=== PATIENT | male | born 1960 | race Caucasian/White ===

== ENCOUNTER 2023-08-31 10:12 | Outpatient (AMB) | payer OTHER, SELFPAY ==
--- NOTE | 2023-08-31 11:16 | AM.OFFWIN_ITS ---
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 He notes he will clean the wound with both hydrogen peroxide rubbing alcohol at the time. He does have mild pain of the thumb there is no rubor or purulent drainage at this time. He is unsure of his last tetanus shot. He has normal range of motion of the thumb and sensation is intact. Nail is not involved. Denies other injuries. [facility] Social History Patient Tobacco Use Status: Never used Tobacco Review of Systems Const Reports as per HPI and Reports no additional complaints Musc Reports no additional complaints and Reports as per HPI Skin/Breast Denies lesions Neuro Reports no additional complaints and Reports as per HPI Physical Exam Vital Signs: Last Vital Signs Temp 97.7 F 08/31/23 11:22 Pulse 62 08/31/23 11:22 BP 130/76 08/31/23 11:22 Pulse Ox 98 08/31/23 11:22 Const General: cooperative, comfortable and no acute distress Orientation/consciousness: patient oriented x3 Neuro General: patient oriented x3 Extrem Right upper extremity: full ROM, normal capillary refill and Extremity exam: right hand (Distal right thumb with puncture wound as) Details: normal capillary refill, neuromotor exam normal, neurosensory exam normal, tendon exam normal and normal ROM of fingers; no edema Hand/finger images: 2 1. Entry point of drill bit was just lateral to nail bed, 3 mm area of open wound, no bleeding drainage or foreign body noted 2. Exit point of drill bit on lateral pad of thumb no bleeding or drainage or foreign body noted Results Reviewed Results Reviewed: X-ray of some contemporaneously read by me without finding of metallic foreign body or bony involvement. Assessment & Plan Assessment & Plan (1) Puncture wound of thumb: Code(s): S61.039A - Puncture wound without foreign body of unspecified thumb without damage to nail, initial encounter Qualifiers: Encounter type: initial encounter Laterality: right Qualified Code(s): S61.031A - Puncture wound without foreign body of right thumb without damage to nail, initial encounter Plan: Tdap given today to update patient. Ten-day course of Augmentin prescribed for puncture wound. Wound was copiously flushed with saline and Betadine solution. Bacitracin applied and wound dressed with dry gauze and Coban. Reviewed wound care with patient. Return to clinic immediately if he develops purulent drainage increased pain or swelling. ER if symptoms involve more than the distal thumb or he develops fever or chills return to clinic with any concerns. Orders: Orders 2 TDaP Immunization Today T14.8XXA - Other injury of unspecified body region, initial encounter, Z23 - Encounter for immunization Medications: New 2 amoxicillin-pot clavulanate 875-125 mg 1 tab PO Q12H 10 days 20 tabs 0RF Coding Level of Care Code New Pt Level 4 (54318) Diagnoses Puncture wound of right thumb, initial encounter S61.031A Encounter type: initial encounter Laterality: right
[2023-08-31 11:22] VITALS: BP 130/76; PULSE 62; TEMP 36.5; O2SAT 98
== END 2023-08-31 12:58 | disposition home or self-care (01) ==
PROVIDERS: PCP Internal Medicine; Visit Provider Physician Assistant
DX: S61.031A Puncture wound without foreign body of right thumb without damage to nail, initial encounter (principal); Z23 Encounter for immunization; T14.8XXA Other injury of unspecified body region, initial encounter; Z04.2 Encounter for examination and observation following work accident
CPT/HCPCS: 90471; 90715; 99204

== ENCOUNTER 2023-08-31 11:48 | Outpatient (REF) | payer OTHER, SELFPAY ==
--- NOTE | ~2023-08-31 | XR_ITS ---
EXAMINATION: XR FINGER, LEFT CLINICAL INFORMATION: Puncture wound thumb with a drill COMPARISON: None available. TECHNIQUE: Single view of the hand with 2 additional views of the left thumb. FINDINGS: Degenerative changes are present at the interphalangeal joints as well as marked degenerative change seen at the first CMC joint and the triscaphe joint. No acute fractures or dislocations. No radiopaque foreign bodies. XR/XR finger LT min 2V IMPRESSION: Degenerative changes as described above. No acute fracture or radiopaque foreign body.
== END 2023-08-31 11:49 | disposition home or self-care (01) ==
LOC: HO.HMGCX 11:48
PROVIDERS: PCP Internal Medicine; Visit Provider Physician Assistant
DX: S61.032A Puncture wound without foreign body of left thumb without damage to nail, initial encounter (principal)
CPT/HCPCS: 73140

== ENCOUNTER 2024-02-22 08:05 | Outpatient (AMB) | payer OTHER, SELFPAY ==
[2024-02-22 08:32] VITALS: BP 124/82; PULSE 97; TEMP 36.7; O2SAT 96
--- NOTE | 2024-02-22 08:32 | AM.OFFWIN_ITS ---
Intake Vital Signs 02/22/24 08:32 Height 5 ft 11 in Weight 215 lb BMI 30.0 BP 124/82 Blood Pressure Location Lt brachial Position Sitting Pulse 97 Pulse Source Pulse Oximeter Temp 98.1 F Temp Source Oral Pulse Oximetry (%) 96 Oxygen Delivery Method Room Air Intake Visit Reasons: EP RT foot Swelling/Pain Intake Note: Pt presents to the office today for c/o right foot swelling and pain that started about 4 days ago with no known injury. Pt states it is hard and painful to walk on. Patient Tobacco Use Status: Never used Tobacco Allergies No Known Allergies Allergy (Verified 02/22/24 08:35) HPI HPI Comments History of Present Illness Details Patient presents to the walkin today for sick visit complains of pain and swelling at base of right great toe Has been suffering with this pain for couple of years, reports became severe over the last 4 days Pain with palpation and with walking [facility] Social History Patient Tobacco Use Status: Never used Tobacco Review of Systems Const All systems reviewed & are unremarkable except as noted in HPI and below Physical Exam Vital Signs: Last Vital Signs Temp 98.1 F 02/22/24 08:32 Pulse 97 02/22/24 08:32 BP 124/82 02/22/24 08:32 Pulse Ox 96 02/22/24 08:32 Oxygen Delivery Method Room Air 02/22/24 08:32 BMI result Body Mass Index 30.0 General: awake, alert, oriented. Answers questions appropriately. Fully engaged in examination. Skin: warm, dry, intact HEENT: Normocephalic. Hearing intact. Cardiac: External chest normal in appearance. Respiratory: No cough, audible wheezing or stridor. Abdomen: without gross distension. MS: swelling and tenderness plantar aspect right 1st metatarsal. intact callous noted. Neurological: Oriented to person, place, time and situation. Thought process intact. No gait abnormalities appreciated. Psychiatric: Appropriate mood and affect. Good judgment and insight. Results Reviewed Results Reviewed: Right Foot XR: IMPRESSION: 1. Decreased bone mineral density which decreases sensitivity for fracture evaluation. 2. No acute visible fracture or dislocation. 3. Multi joint arthritic changes with enthesopathy at the base of the fifth metatarsal and Achilles tendon insertion site. Assessment & Plan Assessment & Plan (1) Right foot pain: Code(s): M79.671 - Pain in right foot Plan Walking boot applied, patient advised on use. Continue with the crutches as needed Tylenol and Motrin as needed for pain Rest, ice, elevate Referral placed for Orthopedics Follow up with PCP or return to the walk-in for any new or worsening symptoms. Coding Level of Care Code Est Pt Level 3 (02513) Diagnoses Right foot pain M79.671
== END 2024-02-22 09:39 | disposition home or self-care (01) ==
PROVIDERS: PCP Internal Medicine; Visit Provider Registered Nurse Emergency
DX: M79.671 Pain in right foot (principal)
CPT/HCPCS: 99213

== ENCOUNTER 2024-02-22 08:47 | Outpatient (REF) | payer OTHER, SELFPAY ==
--- NOTE | ~2024-02-22 | XR_ITS ---
EXAMINATION: XR FOOT, RIGHT CLINICAL INFORMATION: Pain COMPARISON: None available. TECHNIQUE: AP, lateral, and oblique views of the right foot. FINDINGS: Decreased bone mineral density which decreases sensitivity for fracture evaluation. No acute visible fracture or dislocation. Multi joint arthritic changes. Enthesopathy at the base of the fifth metatarsal and Achilles tendon insertion site. Spurring the dorsal midfoot. Joint spaces and alignment are otherwise maintained. XR/XR foot RT min 3V IMPRESSION: 1. Decreased bone mineral density which decreases sensitivity for fracture evaluation. 2. No acute visible fracture or dislocation. 3. Multi joint arthritic changes with enthesopathy at the base of the fifth metatarsal and Achilles tendon insertion site.
== END 2024-02-22 08:48 | disposition home or self-care (01) ==
LOC: HO.HMGCX 08:47
PROVIDERS: PCP Internal Medicine; Visit Provider Registered Nurse Emergency
DX: M76.61 Achilles tendinitis, right leg (principal); M19.071 Primary osteoarthritis, right ankle and foot
CPT/HCPCS: 73630

== ENCOUNTER 2024-03-30 08:21 | Outpatient (AMB) | payer OTHER, SELFPAY ==
--- NOTE | 2024-03-30 08:23 | A.OFFVIS_ITS ---
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 No history of previous treatment. Patient reports having ongoing foot pain for many years with no known injury and it has been getting worse over that past 2 months. He expresses that his pain is worse when ambulating and when being touched. His pain is focused on the medial aspect of the foot. Allergies No Known Allergies Allergy (Verified 03/30/24 08:24) Medication List - Last Reconciled 03/30/24 by Nidia Quiñones MD alendronate 70 mg PO QWEEK aspirin 81 mg PO DAILY bupropion HCl SR 150 mg PO DAILY digoxin 250 mcg PO DAILY meloxicam mg PO metoprolol tartrate 50 mg PO BID mirtazapine mg PO omeprazole 20 mg PO DAILY simvastatin 20 mg PO BEDTIME tamsulosin 0.4 mg PO DAILY HPI Comments Details: On and off for 2 years at least. Redness and swelling ball of right 1st toe and IP joint. 3-4 months has been bothering him almost daily, with pain and swelling, on big toe going to medial. He had gone to walk in clinic at least twice this year for this reason. Taken ibuprofen as needed. Can feel some type of numbness, when he goes to bed. feels weird . Also on left foot. No foot drop. ROS - thumb pain On disability, for depression and anxiety. 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 PCP Dr. Alexis in [facility]? [facility] Medical History (Updated 03/30/24 @ 09:20 by Nidia Quiñones MD) Joint pain Social History (Updated 03/30/24 @ 08:28 by Carlos Contreras) Alcohol intake: never Patient Tobacco Use Status: Never used Tobacco Current occupational status: disabled Review of Systems Const All systems reviewed & are unremarkable except as noted in HPI and below Physical Exam Vital Signs: BMI result Body Mass Index 30.0 Constitutional: Patient appears to be in no acute distress, well nourished and well developed. MSK: Bony enlargement that is red but not warm or tender to touch, on ball of big toe and IP joint, right. No tenderness over medial and lateral malleoli, Achillis tendon or plantar fascia. No ankle instability. Strength is 5/5 in all muscle groups tested. No increased tone noted. Neurological: Neurologic examination of the upper and lower extremities was nonfocal with intact sensation, muscle stretch reflexes and without focal motor deficits . Babinski was down going bilaterally. Clonus was negative. Gait is antalgic without loss of balance. Results Reviewed Results Reviewed: I independently reviewed the results of the following: Bony enlargement or arthritic changes on right 1st toe IP joint and MP joint. Ordering Physician: Kasey Lopez APRN, CNP Date of Service: 02/22/24 Procedure(s): XR foot RT min 3V Accession Number(s): [id number] cc: LYLE ALEXIS MD; Kasey Lopez APRN, CNP~ EXAMINATION: XR FOOT, RIGHT CLINICAL INFORMATION: Pain COMPARISON: None available. TECHNIQUE: AP, lateral, and oblique views of the right foot. FINDINGS: Decreased bone mineral density which decreases sensitivity for fracture evaluation. No acute visible fracture or dislocation. Multi joint arthritic changes. Enthesopathy at the base of the fifth metatarsal and Achilles tendon insertion site. Spurring the dorsal midfoot. Joint spaces and alignment are otherwise maintained. XR/XR foot RT min 3V IMPRESSION: 1. Decreased bone mineral density which decreases sensitivity for fracture evaluation. 2. No acute visible fracture or dislocation. 3. Multi joint arthritic changes with enthesopathy at the base of the fifth metatarsal and Achilles tendon insertion site. I reviewed records from the following: Walk-in clinic notes 02/22/2024 and 11/18/2023. Assessment & Plan Assessment & Plan (1) Joint pain: Code(s): M25.50 - Pain in unspecified joint Category: Medical Qualifiers: Joint pain location: foot Laterality: right Qualified Code(s): M25.571 - Pain in right ankle and joints of right foot (2) Gout: Code(s): M10.9 - Gout, unspecified Category: Medical Qualifiers: Gout site: foot Chronicity: acute Laterality: right Gout etiology: unspecified cause Qualified Code(s): M10.9 - Gout, unspecified Plan Chronic worsening right big toe pain and swelling, which I suspect could be gout. We will check blood work today, uric acid, VIVIAN, RF, and HbA1c. Checking for diabetes since he also complains of feet numbness. Will refer to Rheumatology for further evaluation treatment of gout. We will start naproxen 500 mg b.i.d.. Discussed side effects and precautions. Discontinue meloxicam since he is taking naproxen. Do this for at least 2 weeks and then p.r.n. as needed. Rheumatology may change the medication when they see him. Assessment and plan discussed with patient, and patient was agreeable. All questions were answered thoroughly. Nidia Quiñones MD, KALI Board Certified, [place] [employer] and [employer] (ABPMR) Board Certified, [place] [employer] (ABEM) Orders: Orders AMB Hemoglobin A1c Today M10.9 - Gout, unspecified, M25.50 - Pain in unspecified joint, Z13.9 - Encounter for screening, unspecified Uric Acid Today M10.9 - Gout, unspecified, M25.50 - Pain in unspecified joint Rheumatoid Factor Today M10.9 - Gout, unspecified, M25.50 - Pain in unspecified joint VIVIAN Reflex Titer and Pattern Today M10.9 - Gout, unspecified, M25.50 - Pain in unspecified joint Referrals Rheumatology Referral M10.9 - Gout, unspecified, M25.50 - Pain in unspecified joint Medications: New naproxen twice a day for 2 weeks at least, then continue as needed 500 mg PO BID 60 tabs 0RF Coding Level of Care Code New Pt Level 4 (80164) Diagnoses Arthralgia of right foot M25.571 Joint pain location: foot Laterality: right Acute gout of right foot, unspecified cause M10.9 Gout site: foot Chronicity: acute Laterality: right Gout etiology: unspecified cause
== END 2024-03-30 09:17 | disposition home or self-care (01) ==
PROVIDERS: PCP Internal Medicine; Visit Provider Physical Medicine & Rehabilitation
DX: M25.571 Pain in right ankle and joints of right foot (principal); M10.9 Gout, unspecified
CPT/HCPCS: 99204

== ENCOUNTER → 2024-03-30 08:21 | Outpatient (BNVA) | payer OTHER, SELFPAY | PROVIDERS: PCP Internal Medicine; Visit Provider Physical Medicine & Rehabilitation ==

== ENCOUNTER 2024-03-30 08:54 | Outpatient (REF) | payer OTHER, SELFPAY ==
[2024-03-30 10:46] LABS: Rheumatoid Factor < 13.0 IU/mL (<15.0)
[2024-03-30 10:59] LABS: Uric Acid 8.6 mg/dL (3.4-7.0)
[2024-04-02 22:24] LABS: Anti Nuclear Antibody Screen NEGATIVE (NEGATIVE)
== END 2024-03-30 08:55 | disposition home or self-care (01) ==
LOC: HO.10HDL 08:54
PROVIDERS: Visit Provider Physical Medicine & Rehabilitation
DX: M25.50 Pain in unspecified joint (principal); M10.9 Gout, unspecified
CPT/HCPCS: 36415; 84550; 86038; 86431

== ENCOUNTER 2024-07-05 14:53 | Outpatient (AMB) | payer OTHER, SELFPAY ==
--- NOTE | 2024-07-05 15:09 | MHC.OFFVIS ---
Vital Signs 07/05/24 15:12 Height 5 ft 11 in Weight 223 lb 15.834 oz BMI 31.2 BP 124/62 Blood Pressure Location Lt brachial Position Sitting Pulse 88 Pulse Source Pulse Oximeter Pulse Oximetry (%) 97 Oxygen Delivery Method Room Air Intake Visit Reasons: Gout Intake Note: Patient presents for Gout. Allergies No Known Allergies Allergy (Verified 07/05/24 15:13) Medication List - Last Reconciled 07/05/24 by Brunilda Wills MD alendronate 70 mg PO QWEEK aspirin 81 mg PO DAILY bupropion HCl SR 150 mg PO DAILY digoxin 250 mcg PO DAILY metoprolol tartrate 50 mg PO BID mirtazapine mg PO naproxen 500 mg PO BID omeprazole 20 mg PO DAILY simvastatin 20 mg PO BEDTIME tamsulosin 0.4 mg PO DAILY HPI Comments Details: This is a 64-year-old male who presents for evaluation of gout. Patient stated that he was having intermittent mild pain in his right big toe. However back in January he developed abrupt onset of severe right big toe pain associated with swelling and erythema. He went to urgent care. Gout was suspected. He was prescribed NSAIDs. He stated that the medications worked well. He has not had any recurrence of such severe pain but he would have intermittent achiness of his big toe. Over the last week he has noticed some aching of his knuckles bilaterally. Noticed any significant swelling. Patient is unaware of any personal or family history of gout. Denies history of kidney stones. He is unaware of any family history of an autoimmune rheumatic disease. Patient is on alendronate for osteoporosis. Patient broke his left hip in 2019. 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 Review of Systems [facility] Reports arthralgias, Denies joint swelling and Reports stiffness Physical Exam Vital Signs: Last Vital Signs Pulse 88 07/05/24 15:12 BP 124/62 07/05/24 15:12 Pulse Ox 97 07/05/24 15:12 Oxygen Delivery Method Room Air 07/05/24 15:12 BMI result Body Mass Index 31.2 Const General: cooperative, healthy appearing and comfortable Nutritional Appearance: obese Orientation/consciousness: patient oriented x3 Limitations: no limitations HEENT Head: Yes normocephalic and Yes atraumatic Mouth: moist mucous membranes Resp Effort & Inspection: normal respiratory effort and able to speak in complete sentences Auscultation: clear to auscultation bilaterally Cardio Rate: regular rate Rhythm: regular rhythm Neuro General: patient oriented x3 Extrem Other: Osteoarthritic changes of both hands Bilateral positive MCP squeeze test No elbow pain with flexion-extension bilaterally Normal nailfold capillaroscopy Normal range of motion of shoulders bilaterally No knee pain with flexion-extension bilaterally No ankle swelling or tenderness bilaterally Osteoarthritic changes of both feet with no active synovitis Assessment & Plan Assessment & Plan (1) Gout: Code(s): M10.9 - Gout, unspecified Category: Medical Qualifiers: Gout site: foot Gout etiology: unspecified cause Chronicity: acute Laterality: right Qualified Code(s): M10.9 - Gout, unspecified Plan: This is a 64-year-old male who presents for evaluation of possible gout. Patient had 1 episode of abrupt onset of right big toe pain swelling and erythema 01/2023. Evaluated at urgent care and treated with NSAIDs. Uric acid level is 8.6 mg/dL. Possible gout but I do not think patient qualifies for urate lowering therapy given 1 gout attack. Advised patient to take pictures of any similar flare-ups and call our office. Patient also has noticed some stiffness of his hands over the last 1 or 2 weeks. On exam he has positive MCP squeeze test but no significantly swollen joints. Discussed dietary restrictions for gout. I provided him with a printout detailing low purine diet. Advised patient to monitor his symptoms of stiffness of his hands. Before next visit at advised patient to get blood work to evaluate for inflammatory arthritis, check x-rays of both hands. Follow-up in 3 months Plan I spent 49 minutes reviewing patient's chart, evaluating patient, ordering diagnostic workup, counseling patient and documenting in the chart Orders: Orders C Reactive Protein 3 Months M25.571 - Pain in right ankle and joints of right foot Uric Acid 3 Months M25.571 - Pain in right ankle and joints of right foot XR hand wrist RT 3 Months M25.571 - Pain in right ankle and joints of right foot Cyclic Citrullinated Peptide 3 Months M25.571 - Pain in right ankle and joints of right foot Complete Blood Count Auto Diff 3 Months M25.571 - Pain in right ankle and joints of right foot Comprehensive Met. Panel 3 Months M25.571 - Pain in right ankle and joints of right foot XR hand wrist LT 3 Months M25.571 - Pain in right ankle and joints of right foot HLA B27 3 Months M45.9 - Ankylosing spondylitis of unspecified sites in spine Coding Level of Care Code New Pt Level 4 (41897) Diagnoses Acute gout of right foot, unspecified cause M10.9 Gout site: foot Gout etiology: unspecified cause Chronicity: acute Laterality: right
[2024-07-05 15:12] VITALS: BP 124/62; PULSE 88; O2SAT 97; BMI 31.2
== END 2024-07-05 16:01 | disposition home or self-care (01) ==
PROVIDERS: PCP Internal Medicine; Visit Provider Student in an Organized Health Care Education/Training Program
DX: M10.9 Gout, unspecified (principal)
CPT/HCPCS: 99204

== ENCOUNTER → 2024-07-05 14:53 | Outpatient (BNVA) | payer OTHER, SELFPAY | PROVIDERS: PCP Internal Medicine; Visit Provider Student in an Organized Health Care Education/Training Program ==